=== PATIENT | female | born 1960 | race Caucasian/White ===

== ENCOUNTER → 2023-07-13 | Outpatient (CLI) | payer MEDICARE, OTHER ==
[2023-07-13 10:55] VITALS: BP 148/97; PULSE 82; TEMP 97.9; BMI 23.7
--- NOTE | 2023-07-16 12:56 | P.HPBAR ---
Bariatric H&P - History & Physicial H&P Date: 07/13/23 History & Physicial: Visit/CC: lap band Patient initial contact: Initial weight: Initial weight in pounds: Height: 5 ft 2 in Initial BMI: Last weight: Current weight: 58.786 kg Current weight in pounds: 129.60 Current BMI: 23.7 [place] body weight (based on NIH guidelines): 49.895 kg Excess body weight loss: The patient is a 63 year-old F who presents for Bariatric Assessment.patient has complaints of dysphagia. She's not been seen years. Past Medical History Past Medical History: Pneumonia History of Any Multi-Drug Resistant Organisms: None Reported Past Surgical History: Bariatric Surgery, Section, Cholecystectomy, Hysterectomy, Joint Replacement Additional Past Surgical History / Comment(s): lap band 2011, tummy tuck 2013, knee replacements 2019, 2020 Past Anesthesia/Blood Transfusion Reactions: No Reported Reaction, Postoperative Nausea & Vomiting (PONV) Past Psychological History: Bipolar Smoking Status: Current every day smoker Past Alcohol Use History: None Reported Past Drug Use History: Marijuana Surgical - Exam Vital Signs Temp Pulse BP 97.9 F 82 148/97 07/13/23 10:33 07/13/23 10:33 07/13/23 10:33 - General well developed, well nourished, no distress - Eyes PERRL - ENT normal pinna - Neck no masses - Respiratory normal expansion - Cardiovascular Rhythm: regular - Abdomen Abdomen: soft, non tender Bariatric Assessment & Plan Plan: patient's LAP-BAND was empty. She had 7 mL removed from the band. She currently has 0 mL in the band. Bariatric Checklist Checklist: Plan: Checklist: EGD: 1. Hiatal hernia: 2. H. Pylori: HgbA1c: Vitamin D: Smoking: Primary care physician referral: Dr. Blank Psychiatry clearance: Cardiology clearance: Sleep study: Diet journal: VTE risk score: VTE risk level: Rehab needs at discharge:
== END ==
LOC: BARWHC3 10:08
PROVIDERS: ATTEND Surgery
DX: Z46.51 Encounter for fitting and adjustment of gastric lap band (principal); F17.200 Nicotine dependence, unspecified, uncomplicated; Z98.84 Bariatric surgery status; Z88.8 Allergy status to other drugs, medicaments and biological substances
CPT/HCPCS: 43999

== ENCOUNTER → 2023-08-10 | Outpatient (CLI) | payer MEDICARE ==
[2023-08-10 12:06] VITALS: BP 124/83; PULSE 65; RESP 14; TEMP 97.8; BMI 25.9
--- NOTE | 2023-08-11 11:44 | P.HPBAR ---
Bariatric H&P - History & Physicial H&P Date: 08/10/23 History & Physicial: Visit/CC: follow up and possible lapband fill Patient initial contact: Initial weight: Initial weight in pounds: Height: 5 ft 2 in Initial BMI: Last weight: Current weight: 64.41 kg Current weight in pounds: 142.00 Current BMI: 25.9 [place] body weight (based on NIH guidelines): 49.895 kg Excess body weight loss: The patient is a 63 year-old F who presents for Bariatric Assessment.this is a 63-year-old female who presents today for bariatric follow-up. Patient states she is hungry and is requesting a fill of her band. Past Medical History Past Medical History: Pneumonia History of Any Multi-Drug Resistant Organisms: None Reported Past Surgical History: Bariatric Surgery, Section, Cholecystectomy, Hysterectomy, Joint Replacement Additional Past Surgical History / Comment(s): lap band 2011, tummy tuck 2013, knee replacements 2019, 2020 Past Anesthesia/Blood Transfusion Reactions: No Reported Reaction, Postoperative Nausea & Vomiting (PONV) Past Psychological History: Bipolar Smoking Status: Current every day smoker Past Alcohol Use History: None Reported Past Drug Use History: Marijuana Surgical - Exam Vital Signs Temp Pulse Resp BP 97.8 F 65 14 124/83 08/10/23 11:39 08/10/23 11:39 08/10/23 11:39 08/10/23 11:39 - General well developed, well nourished, no distress - Eyes PERRL - ENT normal pinna - Neck no masses - Respiratory normal expansion - Cardiovascular Rhythm: regular - Abdomen Abdomen: soft, non tender Bariatric Assessment & Plan Plan: patient's LAP-BAND was adjusted. She had 3 mL added to the band. She'll follow-up in4 weeks. Bariatric Checklist Checklist: Plan: Checklist: EGD: 1. Hiatal hernia: 2. H. Pylori: HgbA1c: Vitamin D: Smoking: Primary care physician referral: Dr. Blank Psychiatry clearance: Cardiology clearance: Sleep study: Diet journal: VTE risk score: VTE risk level: Rehab needs at discharge:
== END ==
LOC: BARWHC3 10:32
PROVIDERS: ATTEND Surgery
DX: Z46.51 Encounter for fitting and adjustment of gastric lap band (principal); F17.200 Nicotine dependence, unspecified, uncomplicated; Z98.84 Bariatric surgery status; Z90.3 Acquired absence of stomach [part of]; Z88.8 Allergy status to other drugs, medicaments and biological substances
CPT/HCPCS: 43999

== ENCOUNTER → 2023-09-14 | Outpatient (CLI) | payer BC ==
[2023-09-14 11:12] VITALS: BP 134/84; PULSE 70; RESP 16; TEMP 98.1; BMI 26.9
--- NOTE | 2023-09-14 17:15 | P.HPBAR ---
Bariatric H&P - History & Physicial H&P Date: 09/14/23 History & Physicial: Visit/CC: need a lap band fill Patient initial contact: Initial weight: Initial weight in pounds: Height: 5 ft 2 in Initial BMI: Last weight: Current weight: 66.678 kg Current weight in pounds: 147.00 Current BMI: 26.9 [place] body weight (based on NIH guidelines): 49.895 kg Excess body weight loss: The patient is a 63 year-old F who presents for Bariatric Assessment.patient resents today for LAP-BAND adjustment. She is currently hungry. She is requesting a fill. Past Medical History Past Medical History: Pneumonia History of Any Multi-Drug Resistant Organisms: None Reported Past Surgical History: Bariatric Surgery, Section, Cholecystectomy, Hysterectomy, Joint Replacement Additional Past Surgical History / Comment(s): lap band 2011, tummy tuck 2013, knee replacements 2019, 2020 Past Anesthesia/Blood Transfusion Reactions: No Reported Reaction, Postoperative Nausea & Vomiting (PONV) Past Psychological History: Bipolar Smoking Status: Current every day smoker Past Alcohol Use History: None Reported Past Drug Use History: Marijuana - Past Family History Mother History Unknown: Yes Additional Family Medical History / Comment(s): pt was adopted. Surgical - Exam Vital Signs Temp Pulse Resp BP Pulse Ox 98.1 F 70 16 134/84 99 09/14/23 10:25 09/14/23 10:25 09/14/23 10:25 09/14/23 10:25 09/14/23 10:25 - General well developed, well nourished, no distress - Eyes PERRL - ENT normal pinna - Neck no masses - Respiratory normal expansion - Cardiovascular Rhythm: regular - Abdomen Abdomen: soft, non tender Bariatric Assessment & Plan Plan: patient's LAP-BAND was adjusted. She had 2 mL at the band. She'll follow-up in 4 weeks. Bariatric Checklist Checklist: Plan: Checklist: EGD: 1. Hiatal hernia: 2. H. Pylori: HgbA1c: Vitamin D: Smoking: Primary care physician referral: Dr. Blank Psychiatry clearance: Cardiology clearance: Sleep study: Diet journal: VTE risk score: VTE risk level: Rehab needs at discharge:
== END ==
LOC: BARWHC3 10:25
PROVIDERS: ATTEND Surgery
DX: Z46.51 Encounter for fitting and adjustment of gastric lap band (principal); F17.200 Nicotine dependence, unspecified, uncomplicated; Z98.84 Bariatric surgery status; Z88.6 Allergy status to analgesic agent; Z88.8 Allergy status to other drugs, medicaments and biological substances
CPT/HCPCS: 43999

== ENCOUNTER → 2023-10-19 | Outpatient (CLI) | payer BC ==
[2023-10-19 11:13] VITALS: BP 136/86; PULSE 71; RESP 16; TEMP 98.4; BMI 27.4
--- NOTE | 2023-10-22 11:46 | P.HPBAR ---
Bariatric H&P - History & Physicial H&P Date: 10/19/23 History & Physicial: Visit/CC: Band Adj Patient initial contact: Initial weight: 136.078 kg Initial weight in pounds: 300.00 Height: 5 ft 2 in Initial BMI: 54.8 Last weight: Current weight: 68.039 kg Current weight in pounds: 150.00 Current BMI: 27.4 [place] body weight (based on NIH guidelines): 49.895 kg Excess body weight loss: 78.9% The patient is a 63 year-old F who presents for Bariatric Assessment. Patient presents today for bariatric follow-up. She is requesting a fill of her band. She currently feels hungry. Past Medical History Past Medical History: Pneumonia History of Any Multi-Drug Resistant Organisms: None Reported Past Surgical History: Bariatric Surgery, Section, Cholecystectomy, Hysterectomy, Joint Replacement Additional Past Surgical History / Comment(s): lap band 2011, tummy tuck 2013, knee replacements 2019, 2020 Past Anesthesia/Blood Transfusion Reactions: No Reported Reaction, Postoperative Nausea & Vomiting (PONV) Smoking Status: Current every day smoker - Past Family History Mother History Unknown: Yes Additional Family Medical History / Comment(s): pt was adopted. Surgical - Exam Vital Signs Temp Pulse Resp BP 98.4 F 71 16 136/86 10/19/23 11:10 10/19/23 11:10 10/19/23 11:10 10/19/23 11:10 Abdomen is soft nontender Bariatric Assessment & Plan Plan: Patient's Lap-Band was adjusted. She had 1 cc into the band. She will follow- up in 4 weeks. Bariatric Checklist Checklist: Plan: Checklist: EGD: 1. Hiatal hernia: 2. H. Pylori: HgbA1c: Vitamin D: Smoking: Primary care physician referral: Dr. Blank Psychiatry clearance: Cardiology clearance: Sleep study: Diet journal: VTE risk score: VTE risk level: Rehab needs at discharge:
== END ==
LOC: BARWHC3 10:25
PROVIDERS: ATTEND Surgery
DX: Z46.51 Encounter for fitting and adjustment of gastric lap band (principal); F17.200 Nicotine dependence, unspecified, uncomplicated; Z98.84 Bariatric surgery status; Z88.8 Allergy status to other drugs, medicaments and biological substances
CPT/HCPCS: 43999

== ENCOUNTER → 2024-01-11 | Outpatient (CLI) | payer MEDICARE ==
[2024-01-11 10:54] VITALS: BP 112/73; PULSE 61; RESP 16; TEMP 98.1
--- NOTE | 2024-01-11 12:02 | P.HPBAR ---
Bariatric H&P - History & Physicial H&P Date: 01/11/24 History & Physicial: Visit/CC: f/u lap band Patient initial contact: Initial weight: 136.078 kg Initial weight in pounds: 300.00 Height: 5 ft 2 in Initial BMI: 54.8 Last weight: Current weight: 66.678 kg Current weight in pounds: Current BMI: [place] body weight (based on NIH guidelines): 49.895 kg Excess body weight loss: The patient is a 63 year-old F who presents for Bariatric Assessment. Patient doing well. She is lost another 3 pound since her last visit. She has had minimal gerd. Past Medical History Past Medical History: Pneumonia History of Any Multi-Drug Resistant Organisms: None Reported Past Surgical History: Bariatric Surgery, Section, Cholecystectomy, Hysterectomy, Joint Replacement Additional Past Surgical History / Comment(s): lap band 2011, tummy tuck 2013, knee replacements 2019, 2020 Past Anesthesia/Blood Transfusion Reactions: No Reported Reaction, Postoperative Nausea & Vomiting (PONV) Past Psychological History: Bipolar Smoking Status: Current every day smoker Past Alcohol Use History: None Reported Past Drug Use History: Marijuana Additional Drug Use History / Comment(s): Pt states she smoking occassionally - Past Family History Mother History Unknown: Yes Additional Family Medical History / Comment(s): pt was adopted. Surgical - Exam Vital Signs Temp Pulse Resp BP 98.1 F 61 16 112/73 01/11/24 10:42 01/11/24 10:42 01/11/24 10:42 01/11/24 10:42 - General well developed, well nourished, no distress - Eyes PERRL - ENT normal pinna - Neck no masses - Respiratory normal expansion - Cardiovascular Rhythm: regular - Abdomen Abdomen: soft, non tender Bariatric Assessment & Plan Plan: Patient's gerd is minimal and observe. She will follow-up in 4 weeks. Bariatric Checklist Checklist: Plan: Checklist: EGD: 1. Hiatal hernia: 2. H. Pylori: HgbA1c: Vitamin D: Smoking: Primary care physician referral: Dr. Song Psychiatry clearance: Cardiology clearance: Sleep study: Diet journal: VTE risk score: VTE risk level: Rehab needs at discharge:
== END ==
LOC: BARWHC3 10:34
PROVIDERS: ATTEND Surgery
DX: E66.01 Morbid (severe) obesity due to excess calories
CPT/HCPCS: 99211

== ENCOUNTER → 2024-02-29 | Outpatient (CLI) | payer MEDICARE ==
[2024-02-29 10:00] VITALS: BP 114/74; PULSE 75; RESP 16; TEMP 98.2; BMI 27.6
--- NOTE | 2024-02-29 10:12 | P.HPBAR ---
Bariatric H&P - History & Physicial H&P Date: 02/29/24 History & Physicial: Visit/CC: f/u lapband Patient initial contact: Initial weight: 136.078 kg Initial weight in pounds: 300.00 Height: 5 ft 2 in Initial BMI: 54.8 Last weight: Current weight: 68.492 kg Current weight in pounds: 151.00 Current BMI: 27.6 [place] body weight (based on NIH guidelines): 49.895 kg Excess body weight loss: 78.4% The patient is a 63 year-old F who presents for Bariatric Assessment. Patient presents today for Peritrate follow-up. She is requesting a fill of her band. She is currently hungry. She is gained 4 pound since her last visit. Past Medical History Past Medical History: Pneumonia History of Any Multi-Drug Resistant Organisms: None Reported Past Surgical History: Bariatric Surgery, Section, Cholecystectomy, Hysterectomy, Joint Replacement Additional Past Surgical History / Comment(s): lap band 2011, tummy tuck 2013, knee replacements 2019, 2020 Past Anesthesia/Blood Transfusion Reactions: No Reported Reaction, Postoperative Nausea & Vomiting (PONV) Past Psychological History: Bipolar Smoking Status: Current every day smoker Past Alcohol Use History: None Reported Past Drug Use History: Marijuana Additional Drug Use History / Comment(s): Pt states she smoking occassionally - Past Family History Mother History Unknown: Yes Additional Family Medical History / Comment(s): pt was adopted. Surgical - Exam Vital Signs Temp Pulse Resp BP 98.2 F 75 16 114/74 02/29/24 09:31 02/29/24 09:31 02/29/24 09:31 02/29/24 09:31 - General well developed, well nourished, no distress - Eyes PERRL - ENT normal pinna - Neck no masses - Respiratory normal expansion - Abdomen Abdomen: soft, non tender Bariatric Assessment & Plan Plan: Patient's Lap-Band was adjusted. She had 0.4 cc Ativan. She currently 6.4 cc the band. She will follow-up in 8 weeks. Bariatric Checklist Checklist: Plan: Checklist: EGD: 1. Hiatal hernia: 2. H. Pylori: HgbA1c: Vitamin D: Smoking: Primary care physician referral: Dr. Song Psychiatry clearance: Cardiology clearance: Sleep study: Diet journal: VTE risk score: VTE risk level: Rehab needs at discharge:
== END ==
LOC: BARWHC3 09:27
PROVIDERS: ATTEND Surgery
DX: Z46.51 Encounter for fitting and adjustment of gastric lap band (principal); F17.200 Nicotine dependence, unspecified, uncomplicated; Z98.84 Bariatric surgery status; Z88.8 Allergy status to other drugs, medicaments and biological substances
CPT/HCPCS: 43999

== ENCOUNTER → 2024-05-02 | Outpatient (CLI) | payer MEDICARE ==
[2024-05-02 11:00] VITALS: BP 110/81; PULSE 68; RESP 16; TEMP 98.1; BMI 26.9
--- NOTE | 2024-05-02 14:23 | P.HPBAR ---
Bariatric H&P - History & Physicial H&P Date: 05/02/24 History & Physicial: Visit/CC: Patient initial contact: Initial weight: 136.078 kg Initial weight in pounds: 300.00 Height: 5 ft 2 in Initial BMI: 54.8 Last weight: Current weight: 66.678 kg Current weight in pounds: 147.00 Current BMI: 26.9 [place] body weight (based on NIH guidelines): 49.895 kg Excess body weight loss: 80.5% The patient is a 63 year-old F who presents for Bariatric Assessment. Patient presents today for bariatric follow-up. Patient has a history of Lap-Band surgery. Patient is lost 11 pounds since her last visit. Past Medical History Past Medical History: Pneumonia History of Any Multi-Drug Resistant Organisms: None Reported Past Surgical History: Bariatric Surgery, Section, Cholecystectomy, Hysterectomy, Joint Replacement Additional Past Surgical History / Comment(s): lap band 2011, tummy tuck 2013, knee replacements 2019, 2020 Past Anesthesia/Blood Transfusion Reactions: No Reported Reaction, Postoperative Nausea & Vomiting (PONV) Past Psychological History: Bipolar Smoking Status: Current every day smoker Past Alcohol Use History: None Reported Past Drug Use History: Marijuana Additional Drug Use History / Comment(s): Pt states she smoking occassionally - Past Family History Mother History Unknown: Yes Additional Family Medical History / Comment(s): pt was adopted. Surgical - Exam Vital Signs Temp Pulse Resp BP 98.1 F 68 16 110/81 05/02/24 10:50 05/02/24 10:50 05/02/24 10:50 05/02/24 10:50 - General well developed, well nourished, no distress - Eyes PERRL - ENT normal pinna - Neck no masses - Respiratory normal expansion - Cardiovascular Rhythm: regular - Abdomen Abdomen: soft, non tender Bariatric Assessment & Plan Plan: Status post lap band surgery. Patient is resolving morbid obesity. Patient's gerd is minimal and will be observed. She will follow-up in 8 weeks. Bariatric Checklist Checklist: Plan: Checklist: EGD: 1. Hiatal hernia: 2. H. Pylori: HgbA1c: Vitamin D: Smoking: Primary care physician referral: Dr. Song Psychiatry clearance: Cardiology clearance: Sleep study: Diet journal: VTE risk score: VTE risk level: Rehab needs at discharge:
== END ==
LOC: BARWHC3 10:21
PROVIDERS: ATTEND Surgery
DX: K44.9 Diaphragmatic hernia without obstruction or gangrene (principal); E66.01 Morbid (severe) obesity due to excess calories; B96.81 Helicobacter pylori [H. pylori] as the cause of diseases classified elsewhere; Z98.84 Bariatric surgery status; Z68.26 Body mass index [BMI] 26.0-26.9, adult; Z88.6 Allergy status to analgesic agent; Z88.8 Allergy status to other drugs, medicaments and biological substances
CPT/HCPCS: 99211